=== PATIENT | female | born 1990 | race Two or more races ===

== ENCOUNTER 2017-03-06 18:48 | Emergency (ER) | payer MEDICAID ==
[~2017-03-06] VITALS: Ht 160 cm; Wt 59.0 kg
[~2017-03-06 18:48] MED LIST: PRENCAP61 PO
[2017-03-06 20:41] VITALS: BP 106/55
== END 2017-03-06 20:48 | disposition home or self-care (01) ==
LOC: ER 18:51
DX: S40.862A Insect bite (nonvenomous) of left upper arm, initial encounter (principal); T78.40XA Allergy, unspecified, initial encounter; W57.XXXA Bitten or stung by nonvenomous insect and other nonvenomous arthropods, initial encounter; Y93.89 Activity, other specified; Y99.8 Other external cause status; Y92.89 Other specified places as the place of occurrence of the external cause